=== PATIENT | male | born 1975 ===

== ENCOUNTER 2022-06-12 06:59 | Emergency (ER) | payer BC ==
[2022-06-12] MEDS ORDERED: Omeprazole 20 MG Cap.CR PO ONE (19:29)
[2022-06-12] MEDS ORDERED: GI Cocktail Oral Solution 30 ML PO ONE (19:29)
[2022-07-07 12:48] LABS: ANION GAP 10.5 mEq/L (7-13); CHLORIDE,CL 105 mmol/L (98-107); SODIUM,NA 139 mmol/L (136-145)
[2022-07-07 12:49] LABS: ESTIMATED GFR 110 mL/min (>=60)
[2022-07-07 12:53] LABS: AMPHETAMINES,URINE POSITIVE (NEGATIVE); BARBITURATES,URINE NEGATIVE (NEGATIVE); BENZODIAZEPINE,URINE NEGATIVE (NEGATIVE); MDMA (ECSTASY), URINE NEGATIVE (NEGATIVE); METHADONE,URINE NEGATIVE (NEGATIVE); METHAMPHETAMINES,URINE POSITIVE (NEGATIVE); OPIATES,URINE NEGATIVE (NEGATIVE); OXYCODONE,URINE NEGATIVE (NEGATIVE); PHENCYCLIDINE,URINE NEGATIVE (NEGATIVE); TCA,URINE NEGATIVE (NEGATIVE)
== END 2022-06-12 23:22 | disposition home or self-care (01) ==
LOC: DL.ED 06:59
DX: K21.9 Gastro-esophageal reflux disease without esophagitis (principal); K76.0 Fatty (change of) liver, not elsewhere classified; F15.90 Other stimulant use, unspecified, uncomplicated
CPT/HCPCS: 36415; 74177; 80053; 80305-QW; 80307; 81001; 83735; 85025; 99284; U0002